=== PATIENT | male | born 1975 | race African-American/Black ===

== ENCOUNTER 2017-09-15 09:17 | Emergency (ER) | payer BC, OTHER ==
[~2017-09-15] VITALS: Ht 172.7 cm; Wt 82.0 kg
[2017-09-15 09:27] VITALS: BP 159/102
[2017-09-15] MEDS ORDERED: METHYLPREDNISOLONE SOD SUCC 125 MG/2 ML VIAL IM STA (12:44)
[2017-09-15] MEDS ORDERED: LIDOCAINE HCL 1% 20ML VIAL (Pyxis) INJ INFIL ONE (12:45)
[2017-09-15] MEDS ORDERED: CEFTRIAXONE SODIUM 1 G/VIAL IM ONE (12:45)
== END 2017-09-15 14:15 | disposition home or self-care (01) ==
LOC: ER 09:46
DX: K12.2 Cellulitis and abscess of mouth (principal)
CPT/HCPCS: 87070; 87430; 96372; 99284; J0696; J2930; J3490